=== PATIENT | female | born 1945 | race Caucasian/White ===

== ENCOUNTER → 2016-10-18 | Outpatient (CLI) | payer OTHER ==
--- NOTE | 2016-10-18 17:37 | CT ---
CT Coronary Calcium Score October 18, 2016 at 0942 hours Indication: Hyperlipidemia. Technique: Prospectively gated noncontrast images through the chest, without contrast. Dose reducti on techniques were utilized. Findings: Calcium score according to the Agatston-Janowitz criteria is 22, which is consistent with the 35th percentile for age. Noncardiac evaluation: There are no noncalcified pulmonary nodules. Incidental cysts noted in the l iver. Some linear scarring is present in the chest, without associated nodularity. Impressions 1. Calcium score of 22 places the patient in the 35th percentile rank for age. Distribution is pred ominantly left main and proximal LAD. <<<2. Recommend daily aspirin therapy and [ secondary>> NCEP prevention guidelines.>]
== END ==
LOC: CIMAGING 09:23
PROVIDERS: ATTEND Internal Medicine Interventional Cardiology
DX: Z13.6 Encounter for screening for cardiovascular disorders (principal); E78.5 Hyperlipidemia, unspecified
CPT/HCPCS: 75571-PO

== ENCOUNTER → 2016-10-24 | Outpatient (CLI) | payer OTHER | LOC: BHFA 15:30 | PROVIDERS: ATTEND Internal Medicine Interventional Cardiology | DX: I25.10 Atherosclerotic heart disease of native coronary artery without angina pectoris (principal); E78.5 Hyperlipidemia, unspecified ==

== ENCOUNTER → 2017-05-31 | Outpatient (CLI) | payer OTHER | LOC: BMCIMAGING 13:45 | PROVIDERS: ATTEND Internal Medicine | DX: Z12.31 Encounter for screening mammogram for malignant neoplasm of breast (principal) | CPT/HCPCS: G0202 ==

== ENCOUNTER → 2018-06-05 | Outpatient (CLI) | payer OTHER | LOC: FIMAGING 11:35 | PROVIDERS: ATTEND Internal Medicine | DX: Z12.31 Encounter for screening mammogram for malignant neoplasm of breast (principal) ==

== ENCOUNTER → 2018-10-23 | Outpatient (CLI) | payer OTHER | LOC: BMCIMAGING 11:50 | PROVIDERS: ATTEND Internal Medicine | DX: J40 Bronchitis, not specified as acute or chronic (principal) ==